=== PATIENT | female | born 1980 ===

== ENCOUNTER → 2024-06-17 13:53 | Outpatient (BNVA) | payer OTHER, SELFPAY | PROVIDERS: Visit Provider Registered Nurse | DX: S93.492A Sprain of other ligament of left ankle, initial encounter (principal); S80.01XA Contusion of right knee, initial encounter; S50.01XA Contusion of right elbow, initial encounter; X50.1XXA Overexertion from prolonged static or awkward postures, initial encounter | CPT/HCPCS: 73610; 99203 ==

== ENCOUNTER → 2024-06-20 13:07 | Outpatient (BNVA) | payer OTHER, SELFPAY | PROVIDERS: Visit Provider Physician Assistant Medical | DX: S93.492A Sprain of other ligament of left ankle, initial encounter (principal); S80.01XA Contusion of right knee, initial encounter; S50.01XA Contusion of right elbow, initial encounter; X50.1XXA Overexertion from prolonged static or awkward postures, initial encounter | CPT/HCPCS: 99213 ==

== ENCOUNTER → 2024-06-25 11:50 | Outpatient (BNVA) | payer OTHER, SELFPAY | PROVIDERS: Visit Provider Physician Assistant Medical | DX: S93.492A Sprain of other ligament of left ankle, initial encounter (principal); X50.1XXA Overexertion from prolonged static or awkward postures, initial encounter; M79.672 Pain in left foot | CPT/HCPCS: 73700; 99213 ==

== ENCOUNTER → 2024-07-09 13:55 | Outpatient (BNVA) | payer OTHER, SELFPAY | PROVIDERS: PCP Nurse Practitioner Primary Care; Visit Provider Physician Assistant Medical | DX: S93.492A Sprain of other ligament of left ankle, initial encounter (principal); X50.1XXA Overexertion from prolonged static or awkward postures, initial encounter | CPT/HCPCS: 99213 ==

== ENCOUNTER 2024-07-17 13:22 | Outpatient (REF) | payer OTHER, SELFPAY | END 2024-07-17 13:23 | disposition home or self-care (01) | LOC: HO.HOSX 13:22 | PROVIDERS: Visit Provider Physician Assistant | DX: M25.572 Pain in left ankle and joints of left foot (principal); S93.601A Unspecified sprain of right foot, initial encounter | CPT/HCPCS: 73610; 99202 ==

== ENCOUNTER 2024-07-17 15:08 | Outpatient (AMB) | payer OTHER, SELFPAY ==
--- NOTE | 2024-07-17 15:36 | MHC.OFFVIS ---
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 Her pain is on the lateral aspect of her foot. Patient is going to PT. 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 She was seen at ER the same day where ghazala wraps were applied. She currently states she has shooting pain and pinched sensation at the lateral aspect of her foot that is aggravated with walking long distances. She has been ghazala wrapping and taking OTC Tylenol for her pain as needed. She had her first session of physical therapy yesterday. 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 Review of Systems Const All systems reviewed & are unremarkable except as noted in HPI and below Physical Exam Const General: cooperative, healthy appearing, comfortable, no acute distress, well developed and alert Orientation/consciousness: patient oriented x3 HEENT Head: Yes normal to inspection, Yes normocephalic and Yes atraumatic Eyes General: appearance normal, both eyes and all related structures Resp Effort & Inspection: normal respiratory effort and able to speak in complete sentences Cardio Rate: regular rate Peripheral pulses: Peripheral pulses 2+ throughout GI Palpation (GI): Soft to palpation Skin Lesions: no lesions Rashes: no rashes Neuro General: patient oriented x3 Extrem Other: Left foot: Skin intact.? There is no bruising of the lateral edge of the left foot;however, she does have tenderness.? Sensation intact.? EHL intact.? No pain along the mediolateral malleolus.? Neurovascularly intact. Results Reviewed Results Reviewed: Xrays were obtained in the office today and personally reviewed by me of the left ankle show no bony abnormalities , ankle mortise intact. Assessment & Plan Assessment & Plan (1) Right foot sprain: Code(s): S93.601A - Unspecified sprain of right foot, initial encounter Category: Medical Plan We discussed options which include PT, NSAIDs and injections. The patient will defer on the injection today and proceed with PT and NSAIDs. She will remain out of work for 4 weeks and she will see us back sooner if needed. She was placed in a short boot in the office today. Orders: Orders XR ankle LT min 3V Today M25.572 - Pain in left ankle and joints of left foot Medications: Refilled ibuprofen 800 mg PO TID 30 tabs 3RF Patient Instructions: Scribed for Thien Nguyen PA-C, by Jorge Bravo emergency medical technician/driver, on 07/17/2024 at 3:15 PM EST.? I, Thien Nguyen PA-C, have personally reviewed and agree with the information entered by the scribe. Coding Level of Care Code New Pt Level 3 (31641) Complex EM visit Add On G2211 Diagnoses Right foot sprain S93.601A
== END 2024-07-17 16:10 | disposition home or self-care (01) ==
LOC: HO.HOS 15:09
PROVIDERS: Visit Provider Physician Assistant
DX: S93.601A Unspecified sprain of right foot, initial encounter (principal)
CPT/HCPCS: 99203; G2211

== ENCOUNTER 2024-08-18 13:39 | Outpatient (AMB) | payer OTHER, MEDICAID, SELFPAY ==
--- NOTE | 2024-08-18 13:44 | A.OFFVIS_ITS ---
Vital Signs 08/18/24 13:49 Height 5 ft 2 in Weight 240 lb BMI 43.9 Intake Visit Reasons: OV- LT ankle sprain-Follow up Intake Note: Rosanna 44 yr old female presents today for her rt foot sprain follow up visit DOI: 06/17/24. States she is having difficulty putting on and walking with certain shoes. States she continues to have pain especially when walking. She is compensating with her right foot. Better when resting. State she has 2 more P.T session. Currently states she feels like she is not able to retuen to work due to pain when walking. 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 Allergies No Known Allergies Allergy (Verified 08/18/24 13:47) Medication List - Last Reconciled 08/18/24 by Thien Nguyen PA-C epinephrine IM ibuprofen 800 mg PO TID levothyroxine 100 mcg PO QAM lisinopril 10 mg PO QAM HPI HPI OV- LT ankle sprain-Follow up: Details: 44-year-old female who returns to the office today for a follow-up of left ankle sprain, 06/17/24. She states she has improvement however she continues to have difficulty with weight bearing and walking with certain shoes. Her pain is aggravated with ambulation and alleviates with resting. She has been compensating with her right foot. She also experiences a tingling and shocking sensation in her ankle with moving foot the wrong way. She has been working on physical therapy as instructed. She takes ibuprofen for her pain as needed. She has no other concerns today. 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 Review of Systems Const All systems reviewed & are unremarkable except as noted in HPI and below Physical Exam Vital Signs: BMI result Body Mass Index 43.9 Const General: cooperative, healthy appearing, comfortable, no acute distress, well developed and alert Orientation/consciousness: patient oriented x3 HEENT Head: Yes normal to inspection, Yes normocephalic and Yes atraumatic Eyes General: appearance normal, both eyes and all related structures Resp Effort & Inspection: normal respiratory effort and able to speak in complete sentences Cardio Rate: regular rate Peripheral pulses: Peripheral pulses 2+ throughout GI Palpation (GI): Soft to palpation Skin Lesions: no lesions Rashes: no rashes Neuro General: patient oriented x3 Extrem Other: Left foot: Skin intact.? There is no bruising of the lateral edge of the left foot;however, she does have tenderness over the dorsum of the foot inline with the 2nd and 3rfd metatarsal.? Sensation intact.? EHL intact.? No pain along the mediolateral malleolus.? Neurovascularly intact. Assessment & Plan Assessment & Plan (1) Sprain of left foot: Code(s): S93.602A - Unspecified sprain of left foot, initial encounter Category: Medical Plan She is going to go in the boot weight bearing as tolerated when she is out of house on uneven surfaces given she has been experiencing worsening pain at times. I encouraged her to take ibuprofen thrice a day for 2 weeks. An MRI of the left foot was ordered to further evaluate the ligamentous structures given she has ongoing discomfort even after compliance with physical therapy. She will see me back once the scan is complete. Orders: Orders MR foot LT wo con Today S93.602A - Unspecified sprain of left foot, initial encounter Patient Instructions: Scribed for Thien Nguyen PA-C, by Jorge Bravo medical oncology physician, on 08/18/2024 at 1:45 PM EST.? I, Thien Nguyen PA-C, have personally reviewed and agree with the information entered by the scribe. Coding Level of Care Code Est Pt Level 3 (99094) Complex EM visit Add On G2211 Diagnoses Sprain of left foot S93.602A
[2024-08-18 13:49] VITALS: BMI 43.9
== END 2024-08-18 14:05 | disposition home or self-care (01) ==
PROVIDERS: PCP Nurse Practitioner Primary Care; Visit Provider Physician Assistant
DX: S93.602A Unspecified sprain of left foot, initial encounter (principal)
CPT/HCPCS: 99213; G2211

== ENCOUNTER → 2024-08-18 13:39 | Outpatient (BNVA) | payer OTHER, MEDICAID, SELFPAY | PROVIDERS: PCP Nurse Practitioner Primary Care; Visit Provider Physician Assistant | DX: S93.602D Unspecified sprain of left foot, subsequent encounter (principal) | CPT/HCPCS: 99212 ==

== ENCOUNTER 2024-08-22 17:43 | Outpatient (REF) | payer OTHER, MEDICAID, SELFPAY ==
--- NOTE | ~2024-08-22 | MR_ITS ---
EXAMINATION: MR LOWER EXTREMITY WITHOUT CONTRAST LEFT CLINICAL INFORMATION: Unspecified sprain of left foot, initial encounter. Left foot pain radiating from toes to arch. Numbness in foot, intermittent. Reduced ROM. Instability on foot. Difference of lateral movement. COMPARISON: CT Left foot without contrast 06/25/2024. X-ray left ankle July 2024. TECHNIQUE: MRI of the left foot was performed using routine sequences on a high-field scanner. [id number] includes the midfoot and forefoot. FINDINGS: SUBCUTANEOUS SOFT TISSUES: Normal. DISTAL PLANTAR FASCIA: Normal. MUSCLES/TENDONS: Normal. LIGAMENTS AND CAPSULAR STRUCTURES: Normal. INTERMETATARSAL BURSA: Trace increased fluid compatible with normal variation or minimal bursitis between the 1st, 2nd and 3rd interspaces. NEUROVASCULAR STRUCTURES: Normal. No mass. OSSEOUS STRUCTURES: Mild marrow edema within the cuboid compatible with bone contusion. MR/MR foot LT wo con IMPRESSION: 1. Mild bone contusion of the cuboid. 2. Trace fluid in the intermetatarsal bursa compatible with normal variation or minimal bursitis between the 1st, 2nd and 3rd interspaces. Electronically signed by: Paco Parmar MD 08/26/2024 04:12 PM [facility]
== END 2024-08-22 17:44 | disposition home or self-care (01) ==
LOC: HO.MRI 17:43
PROVIDERS: Visit Provider Physician Assistant
DX: S93.602A Unspecified sprain of left foot, initial encounter (principal)
CPT/HCPCS: 73718

== ENCOUNTER 2024-08-26 14:55 | Outpatient (RCR) | payer OTHER, SELFPAY ==
--- NOTE | 2024-07-17 16:18 | MHC.PT.EP ---
[facility] [place] Office [place] Office [place] Office [address] [phone] F: [phone] F: [phone] F: [phone] F: [phone] Physical Therapy Plan of Care Date of Evaluation: 07/16/24 Date of Surgery: Diagnosis: Ankle inversion sprain. 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 Pt is deemed an appropriate candidate to receive skilled PT services to address their physical impairments in order to improve their functional ability. Frequency and Duration: The patient will be seen 2x/wk x 5 wks. Short Term Goals: Initiate home program. Improve baseline pain to at most 3/10; initial 6/10. Mcfp Goals: I with home program. Pt will improve LEFI outcome measure by at least 9 points. Pt will be able to walk a mile with at most a little bit of difficulty. Pt will be able to negotiate a flight if stairs with at most a little bit of difficulty. Treatment Plan: Modalities to reduce pain, spasms and effusion. Manual therapy to restore motion and function. Therapeutic exercise to improve strength and flexibility. Neuromuscular re-education for posture and balance. Therapeutic activities to return to functional activities of daily living. Electronically signed by: Karl Smith PT. Please sign and return to therapist. Thank you for your referral.
--- NOTE | 2024-12-26 08:17 | MHC.PT.DC ---
[facility] [place] Office [place] Office [place] Office [address] Alvaro Sofia [address] [phone] F: [phone] F: [phone] F: [phone] F: [phone] Physical Therapy Discharge Report Diagnosis: Ankle inversion sprain. Date of Surgery: DOI 06/17/24 Date of Evaluation: 07/16/24 Date of Discharge: 12/26/24 Treatments to Date: 9 Cancellations to Date: No Shows to Date: Discharge Status: Improved Function Patient Elected to Stop Discharge Summary: Pt did not f/u with PT after her last visit: Last Tx note: 08/26: Pt demonstrates full ankle painless AROM; she is able to perform 8 step ups and downs w/o difficulty though persists with foot dorsum pain with activity and metatarsal compression, MMT limited d/t metatarsal dorsum pain not ankle pain. Pt to hold next visit as she had MRI of her foot though pending evaluation and f/u with her ortho; PT to hold until she follows up with MRI and ortho for next steps. Pt ton continue non painful home program. Electronically signed by: Karl Smith PT. Please sign and return to therapist. Thank you for your referral.
== END 2024-12-26 08:16 | disposition home or self-care (01) ==
LOC: HO.PT 14:55
PROVIDERS: PCP Nurse Practitioner Primary Care; Visit Provider Physician Assistant Medical
DX: S96.812A Strain of other specified muscles and tendons at ankle and foot level, left foot, initial encounter (principal)
CPT/HCPCS: 97110; 97140; 97161; 97530

== ENCOUNTER 2024-08-29 11:34 | Outpatient (AMB) | payer OTHER, MEDICAID, SELFPAY ==
--- NOTE | 2024-08-29 11:35 | MHC.OFFVIS ---
Vital Signs 08/29/24 11:37 Height 5 ft 2 in Weight 240 lb BMI 43.9 Intake Visit Reasons: TH- MRI results, Lt foot Intake Note: Rosanna 44 yr old female presents today for an MRI review of rt foot sprain, DOI: 06/17/24. Allergies No Known Allergies Allergy (Verified 08/29/24 11:38) HPI HPI TH- MRI results, Lt foot: Details: 44-year-old female presents for telehealth left foot MRI review. She states she has some improvement especially continues to have some difficulty with ambulation without the boot. She has been out of work since the date of her injury. [facility] Surgical History Hx of gastric bypass Social History Alcohol intake: current Alcohol intake frequency: holidays/special occasions only Patient Tobacco Use Status: Never used Tobacco Current occupational status: employed Current occupation: [employer] Review of Systems Const All systems reviewed & are unremarkable except as noted in HPI and below Physical Exam Vital Signs: BMI result Body Mass Index 43.9 Resp Effort & Inspection: normal respiratory effort and able to speak in complete sentences Telehealth Telehealth Telehealth Platform: Telephone Location of provider rendering services: practice address Location of patient: address on file Patient Identification confirmed using: Name, : Yes Telehealth method: voice only Patient verbally consented to treatment: Yes Patient verbally consented to billing insurance company: Yes Patient informed of any privacy concerns related to visit: Yes Minutes spent on Phone/Video with Pt.: 10 Results Reviewed Results Reviewed: MR foot LT wo con IMPRESSION: 1. Mild bone contusion of the cuboid. 2. Trace fluid in the intermetatarsal bursa compatible with normal variation or minimal bursitis between the 1st, 2nd and 3rd interspaces. Electronically signed by: Paco Parmar MD 08/26/2024 04:12 PM [facility] Assessment & Plan Assessment & Plan (1) Sprain of left foot: Code(s): S93.602A - Unspecified sprain of left foot, initial encounter Category: Medical Plan: I discussed with the patient the MRI findings at length. I recommend that she use a boot weight-bearing as tolerated and transition to a shoe when she is pain-free with ambulation. She will continue working with physical therapy. She will return to work on September 11 2024 without restrictions. Coding Level of Care Code Tele Est Pt Level 3 (86172) Diagnoses Sprain of left foot S93.602A
[2024-08-29 11:37] VITALS: BMI 43.9
== END 2024-08-29 11:57 | disposition home or self-care (01) ==
LOC: HO.HOS 11:34
PROVIDERS: PCP Nurse Practitioner Primary Care; Visit Provider Physician Assistant
DX: S93.602A Unspecified sprain of left foot, initial encounter (principal)
CPT/HCPCS: 99213

== ENCOUNTER 2025-01-22 15:19 | Outpatient (REF) | payer MEDICAID, SELFPAY ==
--- NOTE | ~2025-01-22 | XR_ITS ---
EXAMINATION: XR RIBS, RIGHT CLINICAL INFORMATION: right uper rib cage pain COMPARISON: None available. TECHNIQUE: 4 views of the right ribs were obtained. FINDINGS: Imaged right lung is clear. No pneumothorax or effusion. Imaged aspects of the cardiac and mediastinal silhouettes appear normal. Dedicated rib views demonstrate no definite fracture or focal rib abnormality. XR/XR ribs RT 2V IMPRESSION: No acute findings. Electronically signed by: Enrique Joyce MD 01/22/2025 04:00 PM EDT
--- OUTSIDE RECORDS SUMMARY | 2025-01-22 15:50 | XMS_ITS | Encounter Summary ---
Author Organization [facility] Address [address] [place] [address] Care Team Providers Care Sink Cutter Name Role Phone Ivania Castellano MD Primary Care Provider Unavail able Himanshu Hayes MD Primary Care Provider [phone] Sergio Duque MD Primary Care Provider + Reason for Visit * Reason Onset Date Comments Walk In 06/30/2019 Encounter Details Date Type Department Care Team Description 06/30/2019 Telephone Adult Medicine [address] [address] Ivania Castellano MD Walk In Social History Tobacco Use Types Packs/Day Years Used Date Smoking Tobacco: Never Smokeless Tobacco: Never Alcohol Use Standard Drinks/Week Comments No 0 (1 standard drink = 0.6 oz pur e alcohol) Physical Activity Answer Date Recorded On average, how many days pe r week do you engage in moderate to strenuous exercise (like walking fast, running, jogging, dancing, swimming, biking, or other activities that cause a light or heavy sweat)? 3 days 12/20/2021 On average, how many minutes do you engage in exercise at this level? 30 min 12/20/2021 Financial Resource Strain Answer Date R ecorded How hard is it for you to pa y for the very basics like food, housing, medical care, and heating? Not very hard 12/20/2021 Intimate Partner Violence Answer Date R ecorded Within the last year, have y ou been afraid of your partner or ex-partner? No 12/20/2021 Within the last year, have y ou been humiliated or emotionally abused in other ways by your partner or ex-partner? Not asked Within the last year, have y ou been kicked, hit, slapped, or otherwise physically hurt by your partner or ex-partner? Not asked Within the last year, have y ou been raped or forced to have any kind of sexual activity by your partner or ex-partner? Not asked Food Insecurity Answer Date Recorded Within the past 12 months, y ou worried that your food would run out before you got money to buy more. Never true 12/20/2021 Within the past 12 months, t he food you bought just didn't last and you didn't have money to get more. Not asked Transportation Needs Answer Date Record ed In the past 12 months, has l ack of transportation kept you from medical appointments or from getting medications? No 12/20/2021 In the past 12 months, has l ack of transportation kept you from meetings, work, or getting things needed for daily living? Not asked Housing Stability Answer Date Recorded In the last 12 months, was t here a time when you were not able to pay the mortgage or rent on time? No 12/20/2021 In the last 12 months, how many places have you lived? Not asked In the last 12 months, was t here a time when you did not have a steady place to sleep or slept in a detention (including now)? Not asked Sex Assigned at Date Recorded Not on file Job Start Date Occupation Industry Not on file Not on file Not on file documented as of this encounter Miscellaneous Notes * Telephone Encounter - Ivania Castellaon MD - 06/30/2019 12:09 PM EDT I agree with you needs ER * Telephone Encounter - Liz Molina R.N. - 06/30/2019 12:03 PM EDT Pt has had leg pain since Thursday , C/O tender swollen right leg , hx of some kind of coagulopathyand hx of multiple superficial thrombophlebitis Pt has no chest pain or SOB, is able to speak in full sentences with no audible wheezing, denies any N/V/D or fever, has not had a cough, denies abd pain, he is not dizzy or light headed, states she has pain in right leg legs, but that he right leg is very swollen and she cannot wear a shoe right leg is is 5 inches larger than left , s he is able to walk but leg is very painful with ambulation. the leg is not red or hot, has nl CSM, denies any other joint pains, BP is 142/91 with large cuff 84 16 sat 98% Spoke with dr castellano and pt to go to [facility] with her sister , if she becomes symptomatic she will call 911 en route * Telephone Encounter - Leanna Menjivar - 06/30/2019 11:49 AM EDT Patient is walking in today, states that she has been experiencing right leg pain the feeling is comparable to a teo horse. Has had this pain since this past . Leg is swollen, painful andsomewhat numb. Patient called and spoke with an after hours provider who recommended she'd go to the ER, but patient says she is unable to sit for extended periods of time. Is concerned she might have a blood clot. documented in this encounter Plan of Treatment Not on file documented as of this encounter Visit Diagnoses Not on filedocumented in this encounter Care Teams Sink Cutter Relationship Specialty Start Date End Date Ivania Castellano MD PCP - General Internal Medicine 05/15/18 08/22/21 Himanshu Hayes MD [address] [place] [id number] PCP - General Internal Medicine 08/23/21 04/06/22 Sergio Duque MD [address] [place] [address] [id number] PCP - General Internal Medicine 04/07/22 documented as of this encounter
--- OUTSIDE RECORDS SUMMARY | 2025-01-22 15:50 | XMS_ITS | Encounter Summary ---
Author Organization [facility] Address [address] [place] [address] Care Team Providers Care Tapering Machine Operator Name Role Phone Ivania Castellano MD Primary Care Provider Unavail able Himanshu Hayes MD Primary Care Provider Sergio Duque MD Primary Care Provider + Reason for Visit * Reason Comments E-prescribe Rx Request Encounter Details Date Type Department Care Team Description 08/11/2021 Refill Adult Medicine [address] [address] Ivania Castellano MD E-prescribe Rx Request Social History Tobacco Use Types Packs/Day Years [...] place to sleep or slept in a halfway (including now)? Not asked Sex Assigned at Date Recorded Not on file Job Start Date Occupation Industry Not on file Not on file Not on file documented as of this encounter Miscellaneous Notes * Telephone Encounter - Linda Abreu M.A. - 08/16/2021 8:25 AM EST Lab Results Component Value Date NA 141 06/14/2021 K 4.4 06/14/2021 CO2 27 06/14/2021 CL 108 06/14/2021 BUN 10 06/14/2021 CREAT 0.65 06/14/2021 GLU 92 06/14/2021 CA 9.0 06/14/2021 GFR > 60 06/14/2021 Last appt with Krystle Mohamud SUPERVISOR MACHINING 06/14/21 * Telephone Encounter - Neetu Patel - 08/16/2021 8:19 AM EST Patient would like script to be: E-PRESCRIBED/FAXED TO PHARMACY WHEN WAS THE PATIENT'S LAST APPOINTMENT IN ADULT MEDICINE? 06/14/2021 WHEN WAS THE LAST TIME THE PATIENT SAW THEIR PCP? 02/11/2021 Does patient have an upcoming appointment? No-patient refused appointment, will call back to book appointment (THE MEDICATION REQUESTED IS ON THE MED LIST ABOVE) All of the medications requested were on the CURRENT MEDS list Did you check the Pharmacy information above?: YES Patient wants: 30 -day supply Is this a mail order prescription request ? NO If the refill is from a FAXED refill request what is the RX # listed on the fax? N/A Patients current insurance carrier is: Payor: [employer] / Plan: [employer] [facility] / Product Type: MEDICAID RISK documented in this encounter Plan of Treatment Not on file documented as of this encounter Visit Diagnoses Not on filedocumented in this encounter Care Teams Tapering Machine Operator Relationship Specialty Start Date End Date Ivania Castellano MD PCP - General Internal Medicine 05/15/18 08/22/21 Himanshu Hayes MD [address] [place] [id number] PCP - General Internal Medicine 08/23/21 04/06/22 Sergio Duque MD [address] [place] [address] PCP - General Internal Medicine 04/07/22 documented as of this encounter
--- OUTSIDE RECORDS SUMMARY | 2025-01-22 15:50 | XMS_ITS | Encounter Summary ---
Author Organization [facility] Address [address] [place] [address] Care Team Providers Care Supervising Law Enforcement Analyst Name Role Phone Sergio Duque MD Primary Care Provider + Reason for Visit * Reason Comments E-prescribe Rx Request Encounter Details Date Type Department Care Team Description 10/20/2023 Refill Adult Medicine [facility] [address] [place] [id number] Sagrario Perkins PA-C [address] [place] [address] E-prescribe Rx Request Social History Tobacco Use [...] place to sleep or slept in a nursing home (including now)? Not asked Sex Assigned at Date Recorded Not on file Job Start Date Occupation Industry Not on file Not on file Not on file documented as of this encounter Miscellaneous Notes * Telephone Encounter - Jahaira Duenas C.M.A. - 10/22/2023 11:17 AM EST This is a request from [facility] pharmacy Pt is overdue for visit, last BP f/u 07/2022. No show last 3 appts. 1 month supply was sent 09/18/23 Message left for patient to return my call. Letter mailed. Please review, if not appropriate please refuse. Lab Results Component Value Date NA 140 04/03/2022 K 4.4 04/03/2022 CO2 28 04/03/2022 CL 109 04/03/2022 BUN 10 04/03/2022 CREAT 0.83 04/03/2022 GLU 81 04/03/2022 CA 8.9 04/03/2022 GFR > 60 04/03/2022 documented in this encounter Plan of Treatment Not on file documented as of this encounter Visit Diagnoses Diagnosis Primary hypertension Unspecified essential hypertension documented in this encounter Care Teams Supervising Law Enforcement Analyst Relationship Specialty Start Date End Date Sergio Duque MD [address] [place] [id number] PCP - General Internal Medicine 04/07/22 documented as of this encounter
--- OUTSIDE RECORDS SUMMARY | 2025-01-22 15:50 | XMS_ITS | Encounter Summary ---
Author Organization [facility] Address [address] [place] [address] Care Team Providers Care Drink Box Mechanic Name Role Phone Ivania Castellano MD Primary Care Provider Unavail able Himanshu Hayes MD Primary Care Provider [phone] Sergio Duque MD Primary Care Provider + Encounter Details Date Type Department Care Team Description 04/30/2020 Orders Only Medical Records [address] [place] [address] Pari Neves MD [address] [place] [phone] Social History Tobacco Use Types Packs/Day Years [...] place to sleep or slept in a longterm (including now)? Not asked Sex Assigned at Date Recorded Not on file Job Start Date Occupation Industry Not on file Not on file Not on file documented as of this encounter Plan of Treatment Not on file documented as of this encounter Procedures Procedure Name Priority Date/Time Associated Diagnosis Comments OUTSIDE PATHOLOGY Routine 04/23/2020 documented in this encounter Results * OUTSIDE PATHOLOGY (04/23/2020) Pari Neves MD OUTSIDE LAB documented in this encounter Visit Diagnoses Not on filedocumented in this encounter Care Teams Drink Box Mechanic Relationship Specialty Start Date End Date Ivania Castellano MD PCP - General Internal Medicine 05/15/18 08/22/21 Himanshu Hayes MD [address] [place] [address] PCP - General Internal Medicine 08/23/21 04/06/22 Sergio Duque MD [address] [place] [phone] PCP - General Internal Medicine 04/07/22 documented as of this encounter
--- OUTSIDE RECORDS SUMMARY | 2025-01-22 15:50 | XMS_ITS | Encounter Summary ---
Author Organization [facility] Address [address] [place] [address] Care Team Providers Care Parasitology Teacher Name Role Phone Ivania Castellano MD Primary Care Provider Unavail able Himanshu Hayes MD Primary Care Provider [phone] Sergio Duque MD Primary Care Provider + Encounter Details Date Type Department Care Team Description 06/06/2019 Orders Only Medical Records [address] [place] [address] Pari Neves MD [address] [place] [phone] Social History Tobacco Use Types Packs/Day [...] place to sleep or slept in a custodial (including now)? Not asked Sex Assigned at Date Recorded Not on file Job Start Date Occupation Industry Not on file Not on file Not on file documented as of this encounter Plan of Treatment Not on file documented as of this encounter Procedures Procedure Name Priority Date/Time Associated Diagnosis Comments OUTSIDE SLEEP STUDY Routine 05/30/2019 documented in this encounter Results * OUTSIDE SLEEP STUDY (05/30/2019) Pari Neves MD PULMONOLOGY documented in this encounter Visit Diagnoses Not on filedocumented in this encounter Care Teams Parasitology Teacher Relationship Specialty Start Date End Date Ivania Castellano MD PCP - General Internal Medicine 05/15/18 08/22/21 Himanshu Hayes MD [address] [place] [address] [phone] PCP - General Internal Medicine 08/23/21 04/06/22 Sergio Duque MD [address] [place] [address] [phone] PCP - General Internal Medicine 04/07/22 documented as of this encounter
--- OUTSIDE RECORDS SUMMARY | 2025-01-22 15:50 | XMS_ITS | Encounter Summary ---
Author Organization [facility] Address [address] [place] [address] Care Team Providers Care Store Director Name Role Phone Ivania Castellano MD Primary Care Provider Unavail able Himanshu Hayes MD Primary Care Provider [phone] Sergio Duque MD Primary Care Provider + Encounter Details Date Type Department Care Team Description 11/23/2020 Orders Only Radiology - [address] [address] Ivania Castellano MD Social History Tobacco Use Types Packs/Day Years [...] place to sleep or slept in a assisted (including now)? Not asked Sex Assigned at Date Recorded Not on file Job Start Date Occupation Industry Not on file Not on file Not on file COVID-19 Exposure Response Date Recorded In the last month, have you been in contact with someone who was confirmed or suspected to have Coronavirus / COVID-19? No / Unsure 11/16/2020 10:04 AM EST documented as of this encounter Plan of Treatment Not on file documented as of this encounter Visit Diagnoses Not on filedocumented in this encounter Care Teams Store Director Relationship Specialty Start Date End Date Ivania Castellano MD PCP - General Internal Medicine 05/15/18 08/22/21 Himanshu Hayes MD [address] [place] [id number] PCP - General Internal Medicine 08/23/21 04/06/22 Sergio Duque MD [address] [place] [phone] PCP - General Internal Medicine 04/07/22 documented as of this encounter
--- OUTSIDE RECORDS SUMMARY | 2025-01-22 15:50 | XMS_ITS | Encounter Summary ---
Author Organization [facility] Address [address] [place] [phone] Care Team Providers Care Client Relationship Consultant Name Role Phone Name, Coleman LAUREN Primary Care Provider [phone] Reason for Visit * Reason Onset Date Comments new patient 11/27/2023 Encounter Details Date Type Department Care Team (Late st Contact Info) Description 11/27/2023 Telephone [facility] [address] [place] [address] [phone] Carlos Spencer MD [address] [place] [address] [phone] new patient Social History Tobacco Use Types Packs/Day Years Used Date Smoking Tobacco: Never Smokeless Tobacco: Never Alcohol Use Standard Drinks/Week Comments Yes 0 (1 standard drink = 0.6 oz pur e alcohol) social rarely Comments Unknown Sex and Gender Information Value Date Recorded Sex Assigned at Female 11/23/2023 2:47 PM EDT Legal Sex Female 3:37 PM EDT Gender Identity Female 11/23/2023 2:47 PM EDT Sexual Orientation Straight 11/23/2023 2: 47 PM EDT documented as of this encounter Miscellaneous Notes * Telephone Encounter - [place] Szymanski - 11/27/2023 9:05 AM EDT Tc from pt requesting new pt appt Anjali documented in this encounter Plan of Treatment Upcoming Encounters Date Type Department Care Team (Late st Contact Info) Description 03/30/2025 3:30 PM EDT Office Visit [facility] [address] [place] [address] [phone] Name, MD Coleman [address] [place] [address] [phone] documented as of this encounter Visit Diagnoses Not on filedocumented in this encounter Care Teams Client Relationship Consultant Relationship Specialty Start Date End Date Name, MD Coleman [address] [place] [address] PCP - General Internal Medicine 01/22/25 documented as of this encounter
--- OUTSIDE RECORDS SUMMARY | 2025-01-22 15:50 | XMS_ITS | Encounter Summary ---
Author Organization [facility] Address [address] [place] [address] Care Team Providers Care Knowledge Analyst Name Role Phone Ivania Castellano MD Primary Care Provider Unavail able Himanshu Hayes MD Primary Care Provider Sergio Duque MD Primary Care Provider + Reason for Visit * Reason Comments E-prescribe Rx Request Encounter Details Date Type Department Care Team Description 03/12/2021 Refill General Surgery - [place] [address] [phone] Pari Neves MD [address] [phone] E-prescribe Rx Request Social History Tobacco Use [...] have Coronavirus / COVID-19? No / Unsure 03/05/2021 11:33 AM EDT documented as of this encounter Miscellaneous Notes * Telephone Encounter - Flavia Caraballo M.A. - 03/15/2021 11:16 AM EDT Pt needs a refill of pantoprazole sod dr 40 mg tab documented in this encounter Plan of Treatment Not on file documented as of this encounter Visit Diagnoses Not on filedocumented in this encounter Care Teams Knowledge Analyst Relationship Specialty Start Date End Date Ivania Castellano MD PCP - General Internal Medicine 05/15/18 08/22/21 Himanshu Hayes MD [address] [place] [address] PCP - General Internal Medicine 08/23/21 04/06/22 Sergio Duque MD [address] [place] [id number] PCP - General Internal Medicine 04/07/22 documented as of this encounter
--- OUTSIDE RECORDS SUMMARY | 2025-01-22 15:50 | XMS_ITS | Encounter Summary ---
Author Organization [employer] Address [address] [facility] [address] [place] [address] Care Team Providers Care Corporate Security Manager Name Role Phone Name, Coleman LAUREN Primary Care Provider [phone] Reason for Visit * Reason Onset Date Comments [facility] triage 01/22/2025 Encounter Details Date Type Department Care Team (Late st Contact Info) Description 01/22/2025 Telephone [facility] [address] [place] [address] Anh Stanford RN [facility] triage Social History Tobacco Use Types Packs/Day Years Used Date Smoking Tobacco: Never Passive Smoke Exposure: Never Smokeless Tobacco: Never Alcohol Use Standard [...] encounter Miscellaneous Notes * Telephone Encounter - Anh Stanford RN - 01/22/2025 3:01 PM EDT Pt presents to [facility] approx. 1345 reporting headache, right breast area pain. Pt taken for triage to Room B. Pt walking w/o difficulty, speaking in full sentences. Weepy. Pt reports taking 4 advil and 2 tylenol Q4 hours x 1 month for trying to calm down, get sleep, headache and charley horse cramping in right breast area . She states she spent all mother's day in bed . Due to feeling tired and discouraged about not feeling well all month. Pt lives with her 22 yrold son who is on the autism spectrum. Her headaches are in front forehead, breast area pain is off/on, not related to exertion. 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 Pt os obese, does no regular activity. She has a mammo scheduled for February, not yet scheduled an ordered bone scan Pt reports having GB stones and cysts that have not been eval in a while'. EKG given to MD with report. documented in this encounter Plan of Treatment Upcoming Encounters Date Type Department Care Team (Late st Contact Info) Description 03/30/2025 3:30 PM EDT Office Visit [facility] [address] [place] [address] Name, MD Coleman [address] [place] [address] documented as of this encounter Visit Diagnoses Not on filedocumented in this encounter Care Teams Corporate Security Manager Relationship Specialty Start Date End Date Name, MD Coleman [address] [place] [address] PCP - General Internal Medicine 01/22/25 documented as of this encounter
--- OUTSIDE RECORDS SUMMARY | 2025-01-22 15:50 | XMS_ITS | Encounter Summary ---
Author Organization [facility] Address [address] [place] [address] Care Team Providers Care Disposal Worker Name Role Phone Ivania Castellano MD Primary Care Provider Unavail Himanshu Mcnair MD Primary Care Provider [phone] Sergio Duque MD Primary Care Provider + Encounter Details Date Type Department Care Team Description 04/25/2020 [facility] Medical Records [address] [place] [phone] Carolann Cano PA-C Social History Tobacco Use Types Packs/Day Years [...] place to sleep or slept in a care home (including now)? Not asked Sex Assigned at Date Recorded Not on file Job Start Date Occupation Industry Not on file Not on file Not on file documented as of this encounter Plan of Treatment Not on file documented as of this encounter Visit Diagnoses Not on filedocumented in this encounter Care Teams Disposal Worker Relationship Specialty Start Date End Date Ivania Castellano MD PCP - General Internal Medicine 05/15/18 08/22/21 Himanshu Hayes MD [address] [place] [phone] PCP - General Internal Medicine 08/23/21 04/06/22 Sergio Duque MD [address] [place] [phone] PCP - General Internal Medicine 04/07/22 documented as of this encounter
--- OUTSIDE RECORDS SUMMARY | 2025-01-22 15:50 | XMS_ITS | Encounter Summary ---
Author Organization [facility] Address [address] [place] [address] Care Team Providers Care Soccer Coach Name Role Phone Ivania Castellano MD Primary Care Provider Unavail able Himanshu Hayes MD Primary Care Provider [phone] Sergio Duque MD Primary Care Provider + Reason for Visit * Reason Onset Date Comments Error 12/16/2019 Encounter Details Date Type Department Care Team Description 12/16/2019 Telephone Adult Medicine [address] [address] Ivania Castellano MD Error Social History Tobacco Use Types Packs/Day Years [...] place to sleep or slept in a senior care (including now)? Not asked Sex Assigned at Date Recorded Not on file Job Start Date Occupation Industry Not on file Not on file Not on file documented as of this encounter Miscellaneous Notes * Telephone Encounter - Nadia Blair - 12/16/2019 4:04 PM EDT Error documented in this encounter Plan of Treatment Not on file documented as of this encounter Visit Diagnoses Not on filedocumented in this encounter Care Teams Soccer Coach Relationship Specialty Start Date End Date Ivania Castellano MD PCP - General Internal Medicine 05/15/18 08/22/21 Himanshu Hayes MD [address] [place] [address] PCP - General Internal Medicine 08/23/21 04/06/22 Sergio Duque MD [address] [place] [phone] PCP - General Internal Medicine 04/07/22 documented as of this encounter
--- OUTSIDE RECORDS SUMMARY | 2025-01-22 15:50 | XMS_ITS | Encounter Summary ---
Author Organization [employer] Address [address] [place] [address] Care Team Providers Care Mud Grinder Name Role Phone Name, Coleman LAUREN Primary Care Provider [phone] Encounter Details Date Type Department Care Team (Late st Contact Info) Description 01/22/2025 2:00 PM EDT Office Visit [facility] [address] [place] [phone] Right-sided chest wall pain (Primary Dx); Essential hypertension Social History Tobacco Use Types Packs/Day Years [...] PM EDT documented as of this encounter Last Filed Vital Signs Vital Sign Reading Time Taken Comments Blood Pressure 198/88 01/22/2025 2:57 PM EDT Pulse 58 01/22/2025 2:57 PM EDT Temperature 36.9 ??C (98.4 ??F) 01/22/2025 2:57 PM ED T Respiratory Rate 18 01/22/2025 2:57 PM EDT Oxygen Saturation 98% 01/22/2025 2:57 PM EDT Inhaled Oxygen Concentration - - Weight 115 kg (253 lb 6.4 oz) 01/22/2025 2:57 PM EDT Height 154.9 cm (5' 1 ) 01/22/2025 2:57 PM EDT Body Mass Index 47.88 01/22/2025 2:57 PM EDT documented in this encounter Plan of Treatment Upcoming Encounters Date Type Department Care Team (Late st Contact Info) Description 03/30/2025 3:30 PM EDT Office Visit [facility] [address] [place] [address] Name, MD Coleman [address] [place] [address] documented as of this encounter Visit Diagnoses Diagnosis Right-sided chest wall pain- Primary Painful respiration Essential hypertension Unspecified essential hypertension documented in this encounter Administered Medications Inactive Administered Medications - up to 3 most recent administrations Medication Order MAR Action Action Date Dose Rate Site ibuprofen tablet 800 mg 800 mg, Oral, Once, On Codie 01/22/25 at 1515, For 1 doseIndications:Right-sided chest wall pain Given 01/22/2025 3:15 PM EDT 800 mg documented in this encounter Care Teams Mud Grinder Relationship Specialty Start Date End Date Name, MD Coleman [facility] [place] [address] PCP - General Internal Medicine 01/22/25 documented as of this encounter
--- OUTSIDE RECORDS SUMMARY | 2025-01-22 15:50 | XMS_ITS | Clinical Summary ---
Author Organization [facility] Address [address] [place] [address] Care Team Providers Care Pumping Station Engineer Name Role Phone Sergio Duque MD Primary Care Provider + Allergies Active Allergy Reactions Severity Noted Date Comments Apple 04/14/2020 Diarrhea and cramping Vaccinium Angustifolium Hives/Urticaria 020 Blueberry fruit Ascorbic Acid 02/01/2010 hives Raspberry Hives/Urticaria 04/14/2020 [place] Hives/Urticaria 04/14/2020 Tomato 04/14/2020 Fruit - mouth blisters Medications Medication Sig Dispensed Refills Start Date End Date Status Acetaminophen (TYLENOL OR) Take by mouth. 0 Active Multiple Vitamins-Minerals (DAILY MULTIVITAMIN OR) Take by mouth. 0 Active Blood Glucose Monitoring Suppl (FREESTYLE LITE) Device Use to test blood sugars twice daily 1 Device 0 10/20/2020 Active Glucose Blood (FREESTYLE LITE) Strip Use to test blood sugars twice daily 100 Strip 0 10/20/2020 Active FreeStyle Lancets Misc Use to test blood sugars twice daily 100 Each 0 10/20/2020 Active ALBUTEROL SULFATE 108 (90 Base) MCG/ACT Aero Soln Inhale 2 Puffs into the lungs every 4 hours as needed for Cough or Wheezing. 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 90 Tablet 1 07/26/2022 Active nystatin-triamcinolon e (MYCOLOG II) creamIndications:Inte rtrigo Apply small amounts to affected area every 12 hours. Do not use for more than 14 days at a time 30 g 1 07/26/2022 Active fluticasone 50 MCG/ACT nasal sprayIndications:Acut e bronchitis, unspecified organism SPRAY 2 SPRAYS INTO EACH NOSTRIL EVERY DAY 16 mL 1 11/29/2022 Active hydrOXYzine (ATARAX) 25 MG tabletIndications:Anx iety TAKE 1 TABLET BY MOUTH EVERY 8 HOURS NEEDED FOR ANXIETY 90 Tablet 1 06/25/2023 Active lisinopril (PRINIVIL,ZESTRIL) 10 MG tabletIndications:Ching chaudhry hypertension TAKE 1 TABLET BY MOUTH EVERY DAY 30 Tablet 0 09/18/2023 Active Active Problems Problem Noted Date Anxiety 07/26/2022 Class 2 severe obesity due t o excess calories with serious comorbidity and body mass index (BMI) of 39.0 to 39.9 in adult 05/11/2020 Bariatric surgery status 05/11/2020 Obstructive sleep apnea mild KG 5 10/06 Overview: [facility] Home Sleep Apnea Test: Date 09/30/2019; Wt 344#; BMI 63; KG 5, AI 0; HI 5; Unclassified apneas 1; Obstructive apneas 0; Central apneas 0; Mixed apneas 0; hypopneas 32; average oxygen saturation 93% (lowest 81% without saturations <88% for 5% or more of study) - Obstructive Sleep Apnea - mild; mostly hypopneas; without sleep related hypoventilation by 2019 home sleep apnea test. 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 Intertrigo 10/21/2018 Pure hypercholesterolemia 06/07/2018 Hypertension 01/03/2010 Hypothyroid 01/03/2010 Overview: Judi's Disease Resolved Problems Problem Noted Date Resolved Date Abdominal pannus 10/21/2018 02/11/2021 Immunizations Name Administration Dates Next Due COVID-19 (Moderna Booster) 07/25/2023 COVID-19 (Moderna) 09/13/2021,01/11/2021, 021 Influenza Flu (PT Reported) 09/13/2021 Influenza Vaccine-preservati ve Free-quadrivalent 4 Years 07/25/2023 Influenza Vaccine-quadrivalent 4 Years Plus 08/11 Family History Medical History Relation Name Comments [place] Father 50s, Alcoh olic Diabetes Maternal Grandmother [place] Mother kidney issues Gastric Sleeve Sister CA Colon Uncle heart disease Uncle varicose veins Uncle Relation Name Status Comments Father Maternal Grandmother Mother Alive Sister Uncle Alive Social History Tobacco Use Types Packs/Day Years Used Date Smoking Tobacco: Never Smokeless Tobacco: Never Tobacco Cessation:Counseling Given: Not Answered Alcohol Use Standard Drinks/Week Comments No 0 [...] place to sleep or slept in a penitentiary (including now)? Not asked Sex Assigned at Date Recorded Not on file Job Start Date Occupation Industry Not on file Not on file Not on file Last Filed Vital Signs Vital Sign Reading Time Taken Comments Blood Pressure 146/80 03/01/2023 4:05 PM EDT C Pulse 64 03/01/2023 4:05 PM EDT Temperature 36.6 ??C (97.9 ??F) 03/01/2023 4:05 PM ED T Respiratory Rate 16 07/26/2022 2:35 PM EST Oxygen Saturation 94% 06/14/2021 2:39 PM EDT Inhaled Oxygen Concentration - - Weight 111.6 kg (246 lb) 03/01/2023 4:05 PM EDT Height 157.5 cm (5' 2 ) 03/01/2023 4:05 PM EDT Body Mass Index 44.99 03/01/2023 4:05 PM EDT Plan of Treatment Health Maintenance Due Date Last Done Comments CERVICAL CANCER SCREENING 10/21/20212018 (External Completion), 10/21/2018, 09/12/2011, Additional history exists MAMMOGRAM 03/01/2022 03/01/2021 (Exte rnal Completion), 02/26/2021, 10/18/2018, Additional history exists BASELINE HEALTH EXAM 40-64 04/03/202404/03, 12/20/2021, 10/09/2018, Additional history exists Covid-19 Vaccine (2022-10 4 season) 2024 07/25/2023, 09/13/2021, 01/11/2021, Additional history exists BMI CHECK/ADVISE 09/10/2024 03/01/2023, 08/2022, 10/18/2021, Additional history exists DEPRESSION SCREENING/FOLLOWUP 09/10/2024, 12/20/2021, 10/09/2018 SOCIAL NEEDS SCREENING 09/10/2024 (Completed), 10/09/2018 INFLUENZA (Season Ended) 2025 023, 09/13/2021, 09/06/2020, Additional history exists CHOLESTEROL SCREENING 03/05/2026 03/05/2021 , 10/07/2020, 08/11/2020, Additional history exists DTAP/TDAP/TD (2 - Td or Tdap) 03/10/2027 (External Completion) PNEUMOCOCCAL VACCINE FOR HIG H RISK PATIENTS (#1) 2043 Care Teams Pumping Station Engineer Relationship Specialty Start Date End Date Sergio Duque MD [address] [place] [id number] PCP - General Internal Medicine 04/07/22
--- OUTSIDE RECORDS SUMMARY | 2025-01-22 15:51 | XMS_ITS | Encounter Summary ---
Author Organization [facility] Address [address] [facility] [address] [place] [address] Care Team Providers Care Top Precipitator Operator Helper Name Role Phone Name, Coleman LAUREN Primary Care Provider [phone] Reason for Visit * Reason Comments Med Refill Encounter Details Date Type Department Care Team (Late st Contact Info) Description 12/08/2024 Refill [facility] [address] [place] [address] [phone] Coleman Land MD [address] [place] [phone] Social History Tobacco Use Types Packs/Day Years [...] PM EDT documented as of this encounter Plan of Treatment Upcoming Encounters Date Type Department Care Team (Late st Contact Info) Description 03/30/2025 3:30 PM EDT Office Visit [facility] [address] [place] [phone] NameColeman MD [address] [place] [address] documented as of this encounter Visit Diagnoses Not on filedocumented in this encounter Care Teams Top Precipitator Operator Helper Relationship Specialty Start Date End Date NameColeman MD [address] [place] [phone] PCP - General Internal Medicine 5/15/25 documented as of this encounter
--- OUTSIDE RECORDS SUMMARY | 2025-01-22 15:51 | XMS_ITS | Clinical Summary ---
Author Organization [employer] Address [address] [place] [address] 7 [place] [address] Care Team Providers Care Insolvency Consultant Name Role Phone Name, Coleman LAUREN Primary Care Provider [phone] Allergies Active Allergy Reactions Criticality Noted Date Comments Apple Fiber Other High 11/23/2023 GI upset Apple Juice High 04/14/2020 Other Reaction(s): stomach pain Diarrhea and cramping Other reaction(s): Other GI upset Diarrhea and cramping Ascorbate 02/01/2010 hives Ascorbic Acid 02/01/2010 hives Raspberry 04/14/2020 Other Reaction(s): Hives/Urticaria Other reaction(s): Hives/Urticaria White Mountain Extract 04/14/2020 Other Reaction(s): Hives/Urticaria, throat closes Other reaction(s): Hives/Urticaria Other Reaction(s): Hives/Urticaria Flavoring Agent (Non-Screening) Anaphylaxis High 11/23/2023 Tomato 04/14/2020 Fruit - mouth blisters Vaccinium Angustifolium 04/14/2020 Other Reaction(s): Hives/Urticaria Blueberry fruit Other reaction(s): Hives/Urticaria Blueberry fruit Other Reaction(s): Hives/Urticaria Blueberry fruit Medications EPINEPHrine (Epipen) 0.3 MG/0.3ML injection syringe Inject 0.3 mL (0.3 mg) as directed 1 (one) time if needed for anaphylaxis for up to 1 dose. Inject into upper leg. Call 911 after use. 1 each 11/23/19 24 Active levothyroxine (Synthroid) 100 MCG tablet Take 1 tablet (100 mcg) by mouth before breakfast. 30 tablet 11 12/13/19 25 026 Active Diclofenac Sodium 1 % gelIndications :Right-sided chest wall pain Apply to affected area BID 50 g 04/26/20 25 Active lisinopril 20 MG tablet Take 1 tablet (20 mg) by mouth Once per day. 30 tablet 11 01/23/20 25 026 Active amitriptyline (Elavil) 10 MG tablet Take 1-2 tablets (10-20 mg) by mouth at bedtime. 60 tablet 2 01/23/20 25 026 Active methylPREDNISo lone (Medrol Dospak) 4 MG tablets Follow schedule on package instructions 21 tablet 01/23/20 25 025 Active naproxen (Naprosyn) 500 MG tablet Take 1 tablet (500 mg) by mouth if needed in the morning and at bedtime for mild pain. 30 tablet 1 01/23/20 25 026 Active acetaminophen (Tylenol 8 Hour) 650 MG ER tablet Take 1 tablet (650 mg) by mouth every 8 (eight) hours if needed for mild pain. Do not crush, chew, or split. 40 tablet 1 01/23/20 25 025 Active lisinopril 10 MG tablet Take 1 tablet (10 mg) by mouth Once per day. 30 tablet 11 12/13/19 025 Discontinu ed(Dose adjustment ) cyclobenzaprin e (Flexeril) 5 MG tabletIndicati ons:Right-side d chest wall pain Take 1 tablet (5 mg) by mouth if needed in the morning, at noon, and at bedtime for muscle spasms for up to 10 days. 30 tablet 01/04/20 025 Hospital, Clinic, or Other Facility Administered Medication Ordered Dose Route Frequency Start Date End Date Status ibuprofen tablet 800 mgIndications:Right-sided chest wall pain 800 mg PO Once 01/22/2025 01/22/2025 Ended Active Problems Problem Noted Date Diagnosed Date Right-sided chest wall pain 01/03/2025 Assessment & Plan (01/03/2025 11:06 AM EDT): Images from the original note were not included. Pt here as a Walk In with c/o anterior upper rib cage/chest pain. Pt seen initially at [facility] ER Dx with chostocondritis, Pt subsequently came back to [facility] due to persistent pain on 01/01/2025, work up at [facility] included an ECG, Cardiac Enzymes, CBC, CMP, Chest x-ray and CTA chest all of the testing was unremarkable. Pt was prescribed NSAIDS, Lidocaine patches and Prednisone with no good results. Pt continues to c/o at the moment a dull ache on her right anterior chest area but it waxes and wanes and sometimes she describes it as severe. Intensity 8/10 On exam: she is exquisitely tender to palpation right anterior chest over ribs 3,4 area. Breast exam is normal Etiology ? Rib fracture ? Bone pathology Plan: Plain films of ribs , Bone Scan Trial of Diclofenac Gel and Flexeril (muscle relaxant) an excuse for work given Pt already has an appointment with new PCP Dr. Land I instructed patient to come back or present herself to the nearest ER if symptoms do not improve or worsen 01/01/2025 PROCEDURE: CT ANGIO CHEST TECHNIQUE: CT pulmonary angiogram performed following uneventful IV administration of ISOVUE contrast material with bolus timing technique from the thoracic inlet through the lung bases. FINDINGS: There is no evidence for large central pulmonary embolism. Smaller pulmonary emboli cannot be excluded due to streak and motion artifact. The heart is within normal limits in size. There is no pericardial effusion. Trace coronary artery calcifications. The thoracic aorta is normal in caliber. There is no evidence for mediastinal or hilar lymphadenopathy.No consolidationThere are no pleural effusions.leeve gastrectomy.Mild degenerative changes. IMPRESSION: No acute findings. 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 Encounters Date Type Department Care Team Description 01/22/2025 2:00 PM EDT Office Visit [facility] [address] [place] [phone] Right-sided chest wall pain (Primary Dx); Essential hypertension 01/22/2025 Telephone [facility] [address] [place] [phone] Anh Stanford, MONE AZC triage 01/03/2025 10:20 AM EDT [facility] [address] [id number] Carlos Spencer MD Right-sided chest wall pain (Primary Dx); Breast cancer screening by mammogram 01/02/2025 Telephone [facility] [address] [place] [phone] Amelia Zuniga RN 12/12/2024 Orders Only [address] [address] Coleman Land MD Acquired hypothyroidism (Primary Dx); Primary hypertension 12/12/[address] [address] Coleman Land MD Med Refill 12/08/2024 Refill [facility] [address] [address] Coleman Land MD 11/21/2024 Population Health Risk Score [facility] () Department [address] [place] [phone] Provider, Population Health Generic from Last 3 Months Immunizations Immunization Administration Dates Next Due INFLUENZA INJECTABLE QUADRIV ALANT CCIIV4 MDCK Multi-dose vial 09/06/2020 Influenza Injectable Quadriv alant Preservative Free IIV4 MDCK 07/25/2023 Influenza, Unspecified 09/13/2021 Social History Tobacco Use Types Packs/Day Years Used Date Smoking Tobacco: Never Passive Smoke Exposure: Never Smokeless Tobacco: Never Tobacco Cessation:Counseling Given: Not Answered Alcohol Use Standard Drinks/Week Comments Yes 0 (1 standard drink = 0.6 oz pur e alcohol) social rarely Comments Unknown Sex and Gender Information Value Date Recorded Sex Assigned at Female 11/23/2023 2:47 PM EDT Legal Sex Female 3:37 PM EDT Gender Identity Female 11/23/2023 2:47 PM EDT Sexual Orientation Straight 11/23/2023 2: 47 PM EDT Last Filed Vital Signs Vital Sign Reading [...] Mass Index 47.88 01/22/2025 2:57 PM EDT Plan of Treatment Upcoming Encounters Date Type Department Care Team (Late st Contact Info) Description 03/30/2025 3:30 PM EDT Office Visit [facility] [address] [place] [address] Name, MD Coleman [address] [place] [address] Health Maintenance Due Date Last Done Comments CT Colonography 1978 Colonoscopy 1978 Colorectal Cancer Screening 1978 Depression Screening 1978 FIT DNA/Cologuard 1978 FIT 1978 FOBT 1978 HIV Screening 1978 Lipid Panel 1978 SDOH Screening 1978 Sigmoidoscopy 1978 Alcohol/Substance Use Screening 1990 Family Planning (PISQ) 1993 Hepatitis C Screening 01/09/1996 DTaP/Tdap/Td Vaccines (1 - Tdap) 1997 Hepatitis B Vaccines (1 of 3 - 19+ 3-dose series) 1997 Pap Smear 1999 Cervical Cancer Screening 01/09/2008 HPV/Cotest 01/09/2008 Mammogram 2018 COVID-19 Vaccine ( season) 2024 07/25/2023, 09/13/2021, 01/11/2021, Additional history exists Influenza Vaccine (#1) 2024 3, 09/13/2021, 09/06/2020 Tobacco Screening 01/03/2026 01/03/2025 Zoster Vaccines (1 of 2) 01/09/2028 RSV Patients and Patients Aged 60 years or older (1 - 1-dose 75+ series) 2053 HIB Vaccines Aged Out No longer eligi ble based on patient's age to complete this topic HPV Vaccines Aged Out No longer eligi ble based on patient's age to complete this topic Hepatitis A Vaccines Aged Out No long er eligible based on patient's age to complete this topic IPV Vaccines Aged Out No longer eligi ble based on patient's age to complete this topic Meningococcal B Vaccine Aged Out No l onger eligible based on patient's age to complete this topic Meningococcal Vaccine Aged Out No anupama susan eligible based on patient's age to complete this topic Pneumococcal Vaccine: Pediatrics (0 to 5 Years) and At-Risk Patients (6 to 49) Years) Aged Out No longer eligible based on patient's age to complete this topic RSV under 20 months Aged Out No longe r eligible based on patient's age to complete this topic Rotavirus Vaccines Aged Out No longer eligible based on patient's age to complete this topic Insurance C3 Care Teams Insolvency Consultant Relationship Specialty Start Date End Date Name, MD Coleman [address] [place] [address] PCP - General Internal Medicine 01/22/25
--- OUTSIDE RECORDS SUMMARY | 2025-01-22 15:51 | XMS_ITS | Clinical Summary ---
Author Organization [facility] Address [address] [place] [address] Phone Care Team Providers Care Mailroom Associate Name Role Phone Sergio Duque MD Primary Care Pr ovider Allergies Active Allergy Reactions Criticality Noted Date Comments Apple 04/14/2020 Diarrhea and cramping Ascorbic Acid 02/01/2010 hives Blueberry 04/14/2020 Other Reaction(s): Hives/Urticaria Blueberry fruit Raspberry 04/14/2020 Other Reaction(s): Hives/Urticaria [place] 04/14/2020 Other Reaction(s): Hives/Urticaria Tomato 04/14/2020 Fruit - mouth blisters Medications acetaminophen (TYLENOL ORAL) Take by mouth. Active albuterol HFA (PROAIR HFA ; PROVENTIL HFA ; VENTOLIN HFA) 90 mcg/actuation inhaler Inhale 2 Puffs into the lungs every 4 hours as needed for Cough or Wheezing. 2 Active blood-glucose meter (FREESTYLE LITE METER MISC) Use to test blood sugars twice daily 1 Active fluticasone propionate (FLONASE) 50 mcg/actuation nasal spray SPRAY 2 SPRAYS INTO EACH NOSTRIL EVERY DAY 3 Active FREESTYLE LANCETS MISC Use to test blood sugars twice daily 1 Active blood sugar diagnostic (FreeStyle Lite Strips) test strip Use to test blood sugars twice daily 1 Active hydrOXYzine HCL (ATARAX) 25 mg tablet TAKE 1 TABLET BY MOUTH EVERY 8 HOURS NEEDED FOR ANXIETY 3 Active levothyroxine (SYNTHROID, LEVOTHROID) 88 mcg tablet Take 1 Tablet by mouth daily. 2 Active lisinopriL (PRINIVIL,ZESTRIL ) 10 mg tablet TAKE 1 TABLET BY MOUTH EVERY DAY 4 Active mv-min/folic/vit K/lycop/coQ10 (DAILY MULTIVITAMIN ORAL) Take by mouth. Active pantoprazole (PROTONIX) 40 mg EC tablet TAKE 1 TABLET BY MOUTH EVERY DAY 2 Active lidocaine 4 % patch Apply 1 patch topically 1 (one) time each day. 14 patch 5 Active naproxen (NAPROSYN) 250 mg tablet Take 1 tablet (250 mg total) by mouth 2 (two) times a day with meals for 15 days. 30 tablet 5 01/17/20 25 predniSONE (DELTASONE) 20 mg tablet Take 1 tablet (20 mg total) by mouth 1 (one) time each day for 5 days. 5 each 5 01/07/20 25 Active Problems Problem Noted Date Diagnosed Date Class 2 severe obesity due t o excess calories with serious comorbidity and body mass index (BMI) of 39.0 to 39.9 in adult ([facility] V24, [facility] V28) 09/01/2024 Anxiety 07/26/2022 Obstructive sleep apnea 10/06/2019 Overview (09/01/2024): [facility] Home Sleep Apnea Test: Date 09/30/2019; [...] hypoventilation by 2019 home sleep apnea test. 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 Pure hypercholesterolemia 06/07/2018 Hypertension 01/03/2010 Hypothyroid 01/03/2010 Overview (09/01/2024): Judi's Disease Encounters Date Type Department Care Team Description 01/01/2025 9:49 AM EDT - 01/01/2025 3:23 PM EDT Emergency [facility] Emergency [address] [place] [address] MccannTaylor Marv Carrascony, Chest pain, unspecified type (Primary Dx) Discharge Disposition: Home or Self Care from Last 3 Months Immunizations Name Administration Dates Next Due Influenza Quadravalent, MDCK , 0.5ml, preservative free (Flucelvax) 6mo and older 07/25/2023 Influenza Quadravalent, MDCK , 0.5ml, with preservative (Flucelvax) 6mo and older 09/06/2020 Influenza, Unspecified 09/13/2021 Surgical History Surgery Date Site/Laterality Comments OTHER SURGICAL HISTORY 2012 PROCEDURE: HISTORY OTHER; COMMENT: uterine ablasion BARIATRIC SURGERY 2017 PROCEDURE: [place] LAPS GSTRC RSTRICTIV PX LONGITUDINAL GASTRECTOMY; COMMENT: Sleeve gastrectomy Medical History Medical History Date Comments Hypertension 01/03/2010 DX:Hypertension Hypothyroid 01/03/2010 DX:Hypothyroid Pure hypercholesterolemia 06/07/2018 DX:Pur e hypercholesterolemia Morbid obesity with BMI of 6 0.0-69.9, adult (CMS/HCC V24, CMS/HCC V28) 01/03/2010 DX:Morbid obesity wit h BMI of 60.0-69.9, adult ([facility]) Abdominal pannus 10/21/2018 DX:Abdominal pa nnus Intertrigo 10/21/2018 DX:Intertrigo 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 DX:Lipodystrophy Obstructive sleep apnea 10/06/2019 DX:Obstr uctive sleep apnea; COMMENT: [facility] Home Sleep Apnea Test: Date 09/30/2019; Wt 344#; BMI 63; KG 5, AI 0; HI 5; Unclassified apneas 1; Obstructive apneas 0; Central apneas 0; Mixed apneas 0; hypopneas 32; average oxygen saturation 93% (lowest 81% without saturations <88% for 5% or more of study) - Obstructive Sleep Apnea - mild; mostly hypopneas; without sleep related hypoventilation by 2019 * Family History Medical History Relation Name Comments Heart attack Father 50s, Alcoh olic Diabetes Maternal Grandmother Heart attack Mother kidney issues Other: Gastric Sleeve Sister Colon cancer Uncle Other: heart disease Uncle Other: varicose veins Uncle Relation Name Status Comments Father Maternal Grandmother Mother Alive Sister Uncle Alive Social History Tobacco Use Types Packs/Day Years Used Date Smoking Tobacco: Never Smokeless Tobacco: Never Alcohol Use Standard Drinks/Week Comments No 0 (1 standard drink = 0.6 oz pur e alcohol) Comments Unknown Sex and Gender Information Value Date Recorded Sex Assigned at Not on file Legal Sex Female 7:20 PM EST Gender Identity Not on file Sexual Orientation Not on file Obstetrics History Last Filed Vital Signs Vital Sign Reading Time Taken Comments Blood Pressure 152/95 01/01/2025 12:50 PM EDT Pulse 67 01/01/2025 12:50 PM EDT Temperature 37 ??C (98.6 ??F) 01/01/2025 12:50 PM EDT Respiratory Rate 20 01/01/2025 12:50 PM EDT Oxygen Saturation 100% 01/01/2025 12:50 PM EDT Inhaled Oxygen Concentration - - Weight 109 kg (240 lb) 01/01/2025 12:56 AM EDT Height 157.5 cm (5' 2 ) 01/01/2025 12:56 AM EDT Body Mass Index 43.9 01/01/2025 12:56 AM EDT Plan of Treatment Health Maintenance Due Date Last Done Comments DTaP,Tdap,and Td Vaccines (1 - Tdap) 1997 Hepatitis B Vaccines (1 of 3 - 19+ 3-dose series) 1997 Cervical Cancer Screening: Pap Smear 10/21/2021 10/21/2018, 10/21/2018 Colorectal Cancer Screening: Colonoscopy 08/19/2022 Depression Screening 08/19/2022 HIV Screening 08/19/2022 Hepatitis C Screening 08/19/2022 Social Influencers of Health Screening 08/19/2022 Breast Cancer Screening 02/26/2023 02/26/2021, 10/17 COVID-19 Vaccine ( season) 2024 07/25/2023, 09/13/2021, 01/11/2021, Additional history exists Influenza Vaccine (Season Ended) 2025 07/25/2023, 09/13/2021, 09/06/2020 Hypertension/CHF/CAD Annual BMP Blood Test 01/01/2026 01/01/2025, 04/03/2022 Cholesterol Screening (Lipid Panel) 03/05/2026 03/05/2021 HIB Vaccines Aged Out No longer eligi [...] on patient's age to complete this topic MMR Vaccines Aged Out No longer eligi ble based on patient's age to complete this topic Meningococcal ACWY Vaccine Aged Out N o longer eligible based on patient's age to complete this topic Meningococcal B Vaccine Aged Out No l onger eligible based on patient's age to complete this topic Pneumococcal Vaccine: Pediatrics (0 to 5 Years) and At-Risk Patients (6 to 64 Years) Aged Out No longer eligible based on patient's age to complete this topic RSV Immunization Patients Under 20 months Aged Out No longer eligible based on patient's age to complete this topic Varicella Vaccines Aged Out No longer eligible based on patient's age to complete this topic Procedures Procedure Name Priority Date/Time Associated Diagnosis Comments ECG ANNOTATED 01/02/2025 CT ANGIO CHEST WO AND/OR W CONTRAST STAT 01/01/2025 1:58 PM EDT Chest pain, unspecified type POC , URINE DIAGNOSTIC STAT 01/01/2025 1:01 PM EDT TROPONIN I HIGH SENSITIVITY STAT 01/01/2025 4:05 AM EDT XR CHEST 2 VIEWS STAT 01/01/2025 1:22 AM EDT CBC WITH AUTO DIFFERENTIAL STAT 01/01/2025 1:09 AM EDT COMPREHENSIVE METABOLIC PANEL STAT 01/01/2025 1:09 AM EDT CBC AND DIFFERENTIAL STAT 01/01/2025 1:09 AM EDT TROPONIN I HIGH SENSITIVITY STAT 01/01/2025 1:09 AM EDT ECG 12-LEAD STAT 01/01/2025 12:55 AM EDT LIPID PANEL Routine 03/05/2021 SCREENING MAMMOGRAPHY BI 2-VIEW BREAST INC CAD Routine 02/26/2021 12:56 PM EDT Encounter for other screening for malignant neoplasm of breast HM HPV Routine 10/21/2018 from Last 3 Months or Most Recently Relevant to Health Maintenance Results * ECG-Annotated (01/02/2025) us Provider Onbase MD ECG ORDERABLES Final Result * CT Angio Chest wo and/or w Contrast (01/01/2025 1:58 PM EDT) Anatomical Region Laterality Modality Body Computed Tomogra phy 01/01/2025 2:02 PM EDT Impressions 01/01/2025 2:05 PM EDT No acute findings. -------- FINAL REPORT -------- Dictated By: Yanci Nelson Dictated Date: 01/01/2025 14:02 ET Assigned Physician: Yanci Nelson Reviewed and Electronically Signed By: Yanci Nelson Signed Date: 01/01/2025 14:05 ET Workstation ID: [id number] Transcribed By: Self Edit Transcribed Date: 01/01/2025 14:02 ET Narrative 01/01/2025 2:05 PM EDT PROCEDURE: CT ANGIO CHEST INDICATION: PE suspected, high prob COMPARISON: None. TECHNIQUE: CT pulmonary angiogram performed following uneventful IV administration of ISOVUE contrast material with bolus timing technique from the thoracic inlet through the lung bases. ?? 3-D multiplanar reformations were obtained by the technologist on an independent workstation. [employer] VCT dose reduction utilizing iterative reconstruction. Total exam ??DLP 663 (mGy-cm) FINDINGS: There is no evidence for large central pulmonary embolism. Smaller pulmonary emboli cannot be excluded due to streak and motion artifact. The heart is within normal limits in size. There is no pericardial effusion. ??Trace coronary artery calcifications. ?? The thoracic aorta is normal in caliber. There is no evidence for mediastinal or hilar lymphadenopathy. No consolidation There are no pleural effusions. Sleeve gastrectomy. Mild degenerative changes. Procedure Note Yanci Nelson MD - 01/01/2025 PROCEDURE: CT ANGIO CHEST INDICATION: PE suspected, high prob COMPARISON: None. TECHNIQUE: CT pulmonary angiogram performed following uneventful IVadministration of ISOVUE contrast material with bolus timing techniquefrom the thoracic inlet through the lung bases. 3-D multiplanar reformations were obtained by the technologist on anindependent workstation. [employer] VCT dose reduction utilizing iterative reconstruction. Total exam DLP 663 (mGy-cm) FINDINGS: There is no evidence for large central pulmonary embolism. Smallerpulmonary emboli cannot be excluded due to streak and motion artifact. The heart is within normal limits in size. There is no pericardialeffusion. Trace coronary artery calcifications. The thoracic aorta isnormal in caliber. There is no evidence for mediastinal or hilar lymphadenopathy. No consolidation There are no pleural effusions. Sleeve gastrectomy. Mild degenerative changes. IMPRESSION: No acute findings. -------- FINAL REPORT -------- Dictated By: Yanci Nelson Dictated Date: 01/01/2025 14:02 ET Assigned Physician: Yanci Nelson Reviewed and Electronically Signed By: Yanci Nelson Signed Date: 01/01/2025 14:05 ET Workstation ID: [id number] Transcribed By: Self Edit Transcribed Date: 01/01/2025 14:02 ET us Taylor Mccann DO IMG CT PROCEDURES Final R esult * POC , urine manually resulted (01/01/2025 1:01 PM EDT) HCG, Ur POC Negative Negative Urine Urine specimen obtained by clean catch procedure / Unknown 01/01/2025 1:01 PM EDT us Taylor Mccann DO POINT OF CARE TEST ENTER/ EDIT ORDERABLES Final Result * Troponin I high sensitivity (01/01/2025 4:05 AM EDT) Only the most recent of2 resultswithin the time period is included. High Sensitivity Troponin I 5 <=54 ng/L LAB CHEMISTRY METHOD 01/01/2025 5:42 AM EDT [facility] Blood Venous blood specimen / Unknown Venipuncture / Unknown 01/01/2025 4:05 AM EDT 01/01/2025 5:10 AM EDT Narrative [facility] - 01/01/2025 5:42 AM EDT High levels of biotin in samples may falsely decrease hsTroponin values. ??Use caution when interpreting hsTroponin results in patients taking biotin who exhibit renal impairment (eGFR <60) or in patients taking more than 20 mg/day of biotin. Taylor Mccann DO LAB BLOOD ORDERABLES Yomaira l Result [facility] [address] [place] [address], [place] [phone] * XR Chest 2 Views (01/01/2025 1:22 AM EDT) Anatomical Region Laterality Modality Body Radiographic Jolene ging 01/01/2025 8:06 AM EDT Impressions 01/01/2025 8:07 AM EDT No acute findings. -------- FINAL REPORT -------- Dictated By: Mika Logan Dictated Date: 01/01/2025 08:06 ET Assigned Physician: Mika Logan Reviewed and Electronically Signed By: Mika Logan Signed Date: 01/01/2025 08:07 ET Workstation ID: [id number] Transcribed By: Self Edit Transcribed Date: 01/01/2025 08:06 ET Narrative 01/01/2025 8:07 AM EDT PROCEDURE: PA and lateral radiographs of the chest. HISTORY: chest pain. COMPARISON: 01/13/2023. FINDINGS: Lungs, pleural spaces, pulmonary vasculature, and cardiomediastinal contours are normal. ??Mild degenerative changes of the spine. Procedure Note Mika Logan MD - 01/01/2025 PROCEDURE: PA and lateral radiographs of the chest. HISTORY: chest pain. COMPARISON: 01/13/2023. FINDINGS: Lungs, pleural spaces, pulmonary vasculature, and cardiomediastinalcontours are normal. Mild degenerative changes of the spine. IMPRESSION: No acute findings. -------- FINAL REPORT -------- Dictated By: Mika Logan Dictated Date: 01/01/2025 08:06 ET Assigned Physician: Mika Logan Reviewed and Electronically Signed By: Mika Logan Signed Date: 01/01/2025 08:07 ET Workstation ID: [id number] Transcribed By: Self Edit Transcribed Date: 01/01/2025 08:[address] [facility] Marv Henderson Ramy DO IMG XR PROCEDURES Final R esult * CBC auto differential (01/01/2025 1:09 AM EDT) WBC 7.1 4.8 - 10.8 K/mcL LAB HEMETOLOGY METHOD 01/01/2025 1:47 AM EDT [facility] RBC 4.30 3.80 - 4.80 M/mcL LAB HEMETOLOGY METHOD 01/01/2025 1:47 AM EDT [facility] Hemoglobin 12.6 11.5 - 16.0 g/dL LAB HEMETOLOGY METHOD 01/01/2025 1:47 AM EDT [facility] Hematocrit 39.1 35.0 - 47.0 % LAB HEMETOLOGY METHOD 01/01/2025 1:47 AM EDT [facility] MCV 90.5 79.0 - 98.0 FL LAB HEMETOLOGY METHOD 01/01/2025 1:47 AM EDT [facility] MCH 29.2 27.0 - 32.0 pcg LAB HEMETOLOGY METHOD 01/01/2025 1:[address] [facility] MCHC 32.2 32.0 - 37.0 g/dL LAB HEMETOLOGY METHOD 01/01/2025 1:[address] [facility] RDW 12.3 11.0 - 15.0 % LAB HEMETOLOGY METHOD 01/01/2025 1:[address] [facility] Platelets 262 130 - 400 K/mcL LAB HEMETOLOGY METHOD 01/01/2025 1:[address] [facility] MPV 9.7 7.0 - 11.0 FL LAB HEMETOLOGY METHOD 01/01/2025 1:[address] [facility] NRBC 0.0 <1.0 % LAB HEMETOLOGY METHOD 01/01/2025 1:[address] [facility] NRBC Absolute 0.00 <0.10 K/mcL LAB HEMETOLOGY METHOD 01/01/2025 1:[address] [facility] Neutrophils Relative 65.9 % LAB HEMETOLOGY METHOD 01/01/2025 1:[address] [facility] Lymphocytes Relative 25.2 % LAB HEMETOLOGY METHOD 01/01/2025 1:[address] [facility] Monocytes Relative 6.1 % LAB HEMETOLOGY METHOD 01/01/2025 1:[address] [facility] Eosinophils Relative 1.8 % LAB HEMETOLOGY METHOD 01/01/2025 1:[address] [facility] Basophils Relative 0.7 % LAB HEMETOLOGY METHOD 01/01/2025 1:[address] [facility] Immature Granulocytes Relative 0.3 % LAB HEMETOLOGY METHOD 01/01/2025 1:[address] [facility] Neutrophils Absolute 4.64 1.50 - 7.00 K/mcL LAB HEMETOLOGY METHOD 01/01/2025 1:47 AM EDT [facility] Lymphocytes Absolute 1.78 1.00 - 5.00 K/mcL LAB HEMETOLOGY METHOD 01/01/2025 1:47 AM EDT [facility] Monocytes Absolute 0.43 0.20 - 1.00 K/[facility] LAB HEMETOLOGY METHOD 01/01/2025 1:47 AM EDT [facility] Eosinophils Absolute 0.13 0.00 - 0.50 K/[facility] LAB HEMETOLOGY METHOD 01/01/2025 1:47 AM EDT [facility] Basophils Absolute 0.05 0.00 - 0.20 K/[facility] LAB HEMETOLOGY [facility] Immature Granulocytes Absolute 0.02 0.00 - 0.03 K/[facility] LAB HEMETOLOGY METHOD 01/01/2025 1:[address] [facility] Blood Venous blood specimen / Unknown Venipuncture / Unknown 01/01/2025 1:09 AM EDT 01/01/2025 1:39 AM EDT us Taylor Mccann DO LAB BLOOD ORDERABLES Yomaira l Result [facility] [address] [place] [address], * (ABNORMAL) Comprehensive metabolic panel (01/01/2025 1:09 AM EDT) Sodium 140 133 - 145 mmol/L LAB CHEMISTRY METHOD 01/01/2025 2:27 AM EDT [facility] Potassium 4.0 3.5 - 5.5 mmol/L LAB CHEMISTRY METHOD [facility]2025 [facility] Chloride 108 96 - 110 mmol/L LAB CHEMISTRY METHOD 01/01/2025 2:[address] [facility] CO2 26 21 - 32 mmol/L LAB CHEMISTRY METHOD 01/01/2025 2:[address] [facility] Anion Gap 6 3 - 11 LAB CHEMISTRY METHOD 01/01/2025 2:[address] [facility] Glucose 101(H) 70 - 100 mg/dL LAB CHEMISTRY METHOD 01/01/2025 2:[address] [facility] BUN 11 5 - 25 mg/dL LAB CHEMISTRY METHOD 01/01/2025 2:[address] [facility] Creatinine 0.76 0.50 - 1.10 mg/dL LAB CHEMISTRY METHOD 01/01/2025 2:[address] [facility] eGFR 98 >=60 mL/min/1. 73m2 LAB CHEMISTRY METHOD 01/01/2025 2:[address] [facility] Comment:Calculation based on the??Chronic Kidney Disease Epidemiology Collaboration (CKD-EPI) equation refit??without adjustment for race. BUN/Creatinine Ratio 14.5 LAB CHEMISTRY METHOD 01/01/2025 2:[address] [facility] Calcium 8.8 8.5 - 10.5 mg/dL LAB CHEMISTRY METHOD 01/01/2025 2:[address] [facility] AST (SGOT) 16 10 - 42 unit/L LAB CHEMISTRY METHOD 01/01/2025 2:[address] [facility] ALT (SGPT) 18 10 - 60 unit/L LAB CHEMISTRY METHOD 01/01/2025 2:[address] [facility] Alkaline Phosphatase 64 42 - 121 unit/L LAB CHEMISTRY METHOD 01/01/2025 2:[address] [facility] Total Protein 7.3 6.0 - 8.0 g/dL LAB CHEMISTRY METHOD 01/01/2025 2:[address] [facility] Albumin 3.5 3.2 - 5.0 g/dL LAB CHEMISTRY METHOD 01/01/2025 2:27 AM EDT [facility] Total Bilirubin 0.3 0.0 - 1.4 mg/dL LAB CHEMISTRY METHOD 01/01/2025 2:27 AM EDT [facility] Blood Venous blood specimen / Unknown Venipuncture / Unknown 01/01/2025 1:09 AM EDT 01/01/2025 1:39 AM EDT Taylor Marv Mccann DO LAB BLOOD ORDERABLES Yomaira l Result [facility] [address] [place] [address], [place] [phone] * ECG 12 lead (01/01/2025 12:55 AM EDT) Ventricular Rate ECG 57 BPM GEMUSE Atrial Rate 57 BPM GEMUSE P-R Interval 150 ms GEMUSE QRS Duration 86 ms GEMUSE Q-T Interval 432 ms GEMUSE QTc 420 ms GEMUSE P Wave [place] 3 degrees GEMUSE R [place] 4 degrees GEMUSE T [place] 18 degrees GEMUSE ECG Interpretation Sinus bradycardia Otherwise normal ECG When compared with ECG of 13-JAN-2023 18:48, Vent. rate has decreased BY ??33 BPM Confirmed by Nolberto GONZALES YUFENG ([id number]) on 01/01/2025 12:46:53 PM GEMUSE 01/01/2025 12:5 5 AM EDT 01/01/2025 12:46 PM EDT Taylor Fair Santiago Mccann DO ECG ORDERABLES Final Res ult GEMUSE * (ABNORMAL) Lipid panel (03/05/2021) LDL/HDL Ratio 5(A) 0 - 4 Triglycerides 61 0 - 150 mg/dL Cholesterol 232(A) 0 - 200 mg/dL HDL 49 >=40 mg/dL LDL Cholesterol 171(A) 0 - 100 mg/dL Blood Venous blood specimen / Unknown Historical Provider LAB BLOOD ORDERABLES Yomaira aguirre Result * SCREENING MAMMOGRAPHY BI 2-VIEW BREAST INC CAD (02/26/2021 12:56 PM EDT) Anatomical Region Laterality Modality Radiographic Jolene ging 10/17/2018 3:16 PM EST Narrative 02/28/2021 5:37 PM EDT This is a summary report. The complete report is available in the patient's medical record. If you cannot access the medical record, please contact the sending organization for a detailed fax or copy. Exam: Screening mammogram Findings: Digital bilateral full-field screening mammography is performed with tomosynthesis and interpreted with the aid of computer-aided detection. ??Comparison is made with 10/17/2018. Breast parenchyma is composed of scattered fibroglandular densities. ??No new suspicious mass, architectural distortion, or suspicious calcifications. Impression: No mammographic evidence of malignancy. BI-RADS 1 - negative Procedure Note Milady Ann MD - 08/29/2022 This is a summary report. The complete report is available in thepatient's medical record. If you cannot access the medical record, pleasecontact the sending organization for a detailed fax or copy. Exam: Screening mammogram Findings: Digital bilateral full-field screening mammography is performedwith tomosynthesis and interpreted with the aid of computer-aideddetection. Comparison is made with 10/17/2018. Breast parenchyma is composed of scattered fibroglandular densities. Nonew suspicious mass, architectural distortion, or suspiciouscalcifications. Impression: No mammographic evidence of malignancy. BI-RADS 1 - negative Ivania Castellano MD IMG XR PROCEDURES Final Resu lt * Cervical Cancer Screening: HPV (10/21/2018) Cervical Cancer Screening: HPV Abstracted ,Negative Historical Provider HEALTH MAINTENANCE Final Result from Last 3 Months or Most Recently Relevant to Health Maintenance Insurance MEDICAID - [place] Care Teams Mailroom Associate Relationship Specialty Start Date End Date Sergio Duque MD [address] [facility] [place] [place] P[facility] - General Internal Medicine 04/07/22
--- OUTSIDE RECORDS SUMMARY | 2025-01-22 15:51 | XMS_ITS | Encounter Summary ---
Author Organization [facility] Address [address] [place] [address] Care Team Providers Care Corporate Auditor Name Role Phone Sergio Duque MD Primary Care Provider + Reason for Visit * Reason Onset Date Comments APPOINTMENT 04/07/2022 med review for r efills Encounter Details Date Type Department Care Team Description 04/07/2022 Telephone Adult Medicine [address] [address] Sergio Duque MD [address] [place] [phone] APPOINTMENT (med review for refills) Social History Tobacco Use Types Packs/Day Years [...] place to sleep or slept in a skilled nursing (including now)? Not asked Sex Assigned at Date Recorded Not on file Job Start Date Occupation Industry Not on file Not on file Not on file COVID-19 Exposure Response Date Recorded In the last 10 days, have yo u been in contact with someone who was confirmed or suspected to have Coronavirus/COVID-19? No / Unsure 04/03/2022 10:45 AM EDT documented as of this encounter Miscellaneous Notes * Telephone Encounter - Jessica Rip - 04/10/2022 3:15 PM EDT L/m for pt call back make future appt. documented in this encounter Plan of Treatment Not on file documented as of this encounter Visit Diagnoses Not on filedocumented in this encounter Care Teams Corporate Auditor Relationship Specialty Start Date End Date Sergio Duque MD [address] [place] [phone] PCP - General Internal Medicine 04/07/22 documented as of this encounter
--- OUTSIDE RECORDS SUMMARY | 2025-01-22 15:51 | XMS_ITS | Encounter Summary ---
Author Organization [facility] Address [address] [place] [address] Care Team Providers Care Clamp Jig Assembler Name Role Phone Jaciel Menjivar MD Primary Care Provider [phone] Genoveva Nguyen MD Primary Care Provider [facility], Pcp Primary Care Provider Unavailabl Ivania Flores MD Primary Care Provider Unavail able Ivania Castellano MD Primary Care Provider Unavail able Himanshu Hayes MD Primary Care Provider [phone] Sergio Duque MD Primary Care Provider + Encounter Details Date Type Department Care Team Description 05/10/2011 [facility] Medical Records [address] [place] [address] Pierre Esparza [address] [place] [id number] Social History Tobacco Use Types Packs/Day Years [...] to sleep or slept in a senior living (including now)? Not asked Sex Assigned at Date Recorded Not on file Job Start Date Occupation Industry Not on file Not on file Not on file documented as of this encounter Plan of Treatment Not on file documented as of this encounter Visit Diagnoses Not on filedocumented in this encounter Care Teams Clamp Jig Assembler Relationship Specialty Start Date End Date Jaciel Menjivar MD [address] [place] [id number] PCP - General 01/20/09 04/10/14 Genoveva Nguyen MD [address] [place] [id number] PCP - General Internal Medicine 04/17/18 05/08/18 [facility], Pcp [address] [place], [place] [phone] PCP - General Internal Medicine 05/09/18 05/14/18 Ivania Castellano MD [address] [place], [place] [phone] PCP - General Internal Medicine 05/15/18 08/22/21 Ivania Castellano MD [address] [place], [place] [phone] PCP - General 04/11/14 04/16/18 Himanshu Haeys MD [address] [place] [address] PCP - General Internal Medicine 08/23/21 04/06/22 Sergio Duque MD [address] [place] [phone] PCP - General Internal Medicine 04/07/22 documented as of this encounter
--- OUTSIDE RECORDS SUMMARY | 2025-01-22 15:51 | XMS_ITS | Encounter Summary ---
Author Organization [facility] Address [address] [place] [address] Care Team Providers Care Senior Search Marketing Analyst Name Role Phone Jaciel Menjivar MD Primary Care Provider [phone] Genoveva Nguyen MD Primary Care Provider [facility], Pcp Primary Care Provider Unavailabl Ivania Flores MD Primary Care Provider Unavail able Ivania Castellano MD Primary Care Provider Unavail able Himanshu Hayes MD Primary Care Provider [phone] Sergio Duque MD Primary Care Provider + Encounter Details Date Type Department Care Team Description 10/05/2011 [facility] [address] [place] [id number] Abstract, Provider Social History Tobacco Use Types Packs/Day Years Used Date Smoking Tobacco: Never Alcohol Use Standard Drinks/Week Comments [...] place to sleep or slept in a long-term (including now)? Not asked Sex Assigned at Date Recorded Not on file Job Start Date Occupation Industry Not on file Not on file Not on file documented as of this encounter Plan of Treatment Not on file documented as of this encounter Visit Diagnoses Not on filedocumented in this encounter Care Teams Senior Search Marketing Analyst Relationship Specialty Start Date End Date Jaciel Menjivar MD [address] [place] [phone] PCP - General 01/20/09 04/10/14 Genoveva Nguyen MD [address] [place] [phone] PCP - General Internal Medicine 04/17/18 05/08/18 [facility], Pcp [address] [place], [place] [id number] PCP - General Internal Medicine 05/09/18 05/14/18 Ivania Castellano MD [address] [place] [phone] PCP - General Internal Medicine 05/15/18 08/22/21 Ivania Castellano MD [address] [place], [place] [phone] PCP - General 04/11/14 04/16/18 Himanshu Hayes MD [address] [place] [address] PCP - General Internal Medicine 08/23/21 04/06/22 Sergio Duque MD [address] [place], [place] [phone] PCP - General Internal Medicine 04/07/22 documented as of this encounter
--- OUTSIDE RECORDS SUMMARY | 2025-01-22 15:51 | XMS_ITS | Encounter Summary ---
Author Organization [facility] Address [address] [place] [address] Care Team Providers Care Wildlife Forensic Geneticist Name Role Phone Sergio Duque MD Primary Care Provider + Reason for Visit * Reason Onset Date Comments refill request 04/10/2022 Encounter Details Date Type Department Care Team Description 04/10/2022 Refill Adult Medicine [facility] [address] [place] [id number] Sergio Duque MD [address] [place] [address] refill request Social History Tobacco Use Types Packs/Day Years [...] place to sleep or slept in a retirement (including now)? Not asked Sex Assigned at [...] Telephone Encounter - Linda Abreu M.A. - 04/11/2022 9:57 AM EDT Lab Results Component Value Date NA 140 04/03/2022 K 4.4 04/03/2022 CO2 28 04/03/2022 CL 109 04/03/2022 BUN 10 04/03/2022 CREAT 0.83 04/03/2022 GLU 81 04/03/2022 CA 8.9 04/03/2022 GFR > 60 04/03/[address] Duque 07/26/22 * Telephone Encounter - Faith Verma - 04/10/2022 4:10 PM EDT Patient would like script to be: E-PRESCRIBED/FAXED TO PHARMACY WHEN WAS THE PATIENT'S LAST APPOINTMENT IN ADULT MEDICINE? 12/20/21 WHEN WAS THE LAST TIME THE PATIENT SAW THEIR PCP? New to pcp Does patient have an upcoming appointment? Yes 07/26/22 (THE MEDICATION REQUESTED IS ON THE MED LIST ABOVE) All of the medications requested were on the CURRENT MEDS list Did you check the Pharmacy information above?: YES Patient wants: 90 -day supply Is this a mail order prescription request ? NO If the refill is from a FAXED refill request what is the RX # listed on the fax? N/A Patients current insurance carrier is: Payor: [facility] [employer] / Plan: [facility] / Product Type: MEDICAID RISK documented in this encounter Plan of Treatment Not on file documented as of this encounter Visit Diagnoses Not on filedocumented in this encounter Care Teams Wildlife Forensic Geneticist Relationship Specialty Start Date End Date Sergio Duque MD [address] [place], [place] [phone] PCP - General Internal Medicine 04/07/22 documented as of this encounter
[2025-01-22 16:40] LABS: Anion Gap 13 (12-20); Blood Urea Nitrogen 11 mg/dL (9-16); Calcium 9.2 mg/dL (8.4-10.2); Carbon Dioxide 24 mmol/L (22-29); Chloride 107 mmol/L (96-108); Estimated Glomerular Filt Rate > 60; Glucose Random 88 mg/dL (60-115); Potassium 3.8 mmol/L (3.3-5.1); Sodium 140 mmol/L (135-145)
[2025-01-22 16:59] LABS: TSH reflex Free T4 1.23 uIU/mL (0.32-4.0)
== END 2025-01-22 15:20 | disposition home or self-care (01) ==
LOC: HO.HHCL 15:19
PROVIDERS: Visit Provider Internal Medicine Geriatric Medicine
DX: I10 Essential (primary) hypertension (principal); E03.9 Hypothyroidism, unspecified; R07.89 Other chest pain
CPT/HCPCS: 36415; 71100; 80048; 84443

== ENCOUNTER → 2025-01-22 15:34 | Outpatient (BNV) | payer MEDICAID, SELFPAY | PROVIDERS: Visit Provider Radiology Diagnostic Radiology | DX: R10.11 Right upper quadrant pain (principal) | CPT/HCPCS: 71100 ==